=== PATIENT | male | born 1935 | race Caucasian/White ===

== ENCOUNTER → 2018-07-22 | Outpatient (CLI) | payer MEDICARE ==
--- NOTE | 2018-07-22 13:44 | Diagnostic Imaging Report ---
PROCEDURE: CT chest without contrast. TECHNIQUE: Multiple contiguous axial images were obtained through the chest without the use of intravenous contrast. Auto Exposure Controls were utilized during the CT exam to meet ALARA standards for radiation dose reduction. INDICATION: Myeloproliferative disorder. Patient also has shortness of air. COMPARISON: No prior studies are available for comparison. FINDINGS: No definite axillary lymphadenopathy is seen. Hilar and mediastinal evaluation is limited without intravenous contrast but no significant abnormality is seen. There are coronary arterial calcifications present. No pericardial or pleural fluid is identified. Parenchymal evaluation demonstrates the lungs to be hyperinflated. There are centrilobular emphysematous changes noted. Small slightly irregular density in the left apex is noted measuring 6 mm, image #5. This is indeterminate. Otherwise the lungs are clear. No infiltrates are seen. Upper abdomen is unremarkable. IMPRESSION: Centrilobular emphysematous changes. This is a tiny density in the left apex, indeterminate. Followup CT chest in four to six months could be performed to confirm stability. No other significant abnormality is seen. Dictated by: Dictated on workstation # [id number]
== END ==
LOC: RAD 12:38
PROVIDERS: ATTEND Internal Medicine Hematology & Oncology
DX: C94.6 Myelodysplastic disease, not elsewhere classified (principal); J43.9 Emphysema, unspecified
CPT/HCPCS: 71250

== ENCOUNTER → 2018-07-30 | Outpatient (CLI) | payer MEDICARE | LOC: CARD 11:57 | PROVIDERS: ATTEND Internal Medicine Hematology & Oncology | DX: D47.1 Chronic myeloproliferative disease (principal); R06.02 Shortness of breath; N28.9 Disorder of kidney and ureter, unspecified; I07.1 Rheumatic tricuspid insufficiency | CPT/HCPCS: 93306 ==

== ENCOUNTER 2018-08-13 10:20 | Outpatient (RCR) | payer MEDICARE, OTHER ==
[2018-07-22 12:54] LABS: BASOPHILS % (AUTO) 0 % (0-10); EOSINOPHILS % (AUTO) 0 % (0-10); HEMATOCRIT 27 % (40-54); HEMOGLOBIN 8.5 G/DL (13.3-17.7); LYMPHOCYTES # (AUTO) 0.9 X 10^3 (1.0-4.0); LYMPHOCYTES % (AUTO) 7 % (12-44); MEAN CORPUSCULAR HEMOGLOBIN 26 PG (25-34); MEAN CORPUSCULAR HGB CONC 32 G/DL (32-36); MEAN CORPUSCULAR VOLUME 81 FL (80-99); MONOCYTES # (AUTO) 0.1 X 10^3 (0.0-1.0); MONOCYTES % (AUTO) 1 % (0-12); NEUTROPHILS # (AUTO) 12.2 X 10^3 (1.8-7.8); NEUTROPHILS % (AUTO) 92 % (42-75); RED CELL DISTRIBUTION WIDTH 17.3 % (10.0-14.5); WHITE BLOOD COUNT 13.2 10^3/uL (4.3-11.0)
[2018-07-22 12:58] LABS: PLATELET COUNT 12 10^3/uL (130-400)
[2018-07-22 13:14] LABS: ALBUMIN 3.5 GM/DL (3.2-4.5); BILIRUBIN,TOTAL 0.8 MG/DL (0.1-1.0); CALCIUM 8.9 MG/DL (8.5-10.1); CREATININE SERUM 2.15 MG/DL (0.60-1.30); TOTAL PROTEIN 7.2 GM/DL (6.4-8.2); URIC ACID 3.9 MG/DL (2.6-7.2)
[~2018-08-13 10:20] MED LIST: NS IV 500 ML (CANCER CENTER) 500 ML ONE
[2018-08-13 10:33] LABS: BASOPHILS % (AUTO) 0 % (0-10); EOSINOPHILS % (AUTO) 0 % (0-10); HEMATOCRIT 24 % (40-54); LYMPHOCYTES # (AUTO) 0.9 X 10^3 (1.0-4.0); LYMPHOCYTES % (AUTO) 11 % (12-44); MEAN CORPUSCULAR HEMOGLOBIN 26 PG (25-34); MEAN CORPUSCULAR HGB CONC 29 G/DL (32-36); MEAN CORPUSCULAR VOLUME 90 FL (80-99); MONOCYTES # (AUTO) 0.3 X 10^3 (0.0-1.0); MONOCYTES % (AUTO) 3 % (0-12); NEUTROPHILS # (AUTO) 6.8 X 10^3 (1.8-7.8); NEUTROPHILS % (AUTO) 86 % (42-75); PLATELET COUNT 45 10^3/uL (130-400); RED CELL DISTRIBUTION WIDTH 22.7 % (10.0-14.5)
[2018-08-13 10:38] LABS: HEMOGLOBIN 6.8 G/DL (13.3-17.7)
[2018-08-13 10:56] LABS: ALBUMIN 2.8 GM/DL (3.2-4.5); BILIRUBIN,TOTAL 0.6 MG/DL (0.1-1.0); CALCIUM 8.3 MG/DL (8.5-10.1); CREATININE SERUM 2.05 MG/DL (0.60-1.30); POTASSIUM 3.8 MMOL/L (3.6-5.0); TOTAL PROTEIN 5.7 GM/DL (6.4-8.2)
[2018-08-13] MEDS ORDERED: NS IV 500 ML (CANCER CENTER) 500 ML ONE (11:55)
== END 2018-10-20 | disposition home or self-care (01) ==
LOC: ONC 10:20
PROVIDERS: ATTEND Internal Medicine Hematology & Oncology
DX: D47.1 Chronic myeloproliferative disease (principal); N40.1 Benign prostatic hyperplasia with lower urinary tract symptoms; R06.00 Dyspnea, unspecified; I49.9 Cardiac arrhythmia, unspecified; N17.9 Acute kidney failure, unspecified; N13.9 Obstructive and reflux uropathy, unspecified; Z87.891 Personal history of nicotine dependence; Z79.899 Other long term (current) drug therapy; Z88.0 Allergy status to penicillin
CPT/HCPCS: 36415; 36430; 80053; 82668; 83615; 84550; 85025; 86850; 86900; 86901; 86920; 96360; 96361; 99214